=== PATIENT | male | born 1970 | race Caucasian/White ===

== ENCOUNTER 2023-12-03 17:41 | Inpatient (IN) | payer BC ==
[2023-12-03 18:41] VITALS: BMI 17.4
[2023-12-03] MEDS ORDERED: NICOTINE POLACRILEX 2 MG LOZENGE BC PRN (20:22)
[2023-12-03] MEDS ORDERED: MAGNESIUM HYDROX 2400MG/30ML ORAL SUSPENSION 30 ML CUP PO PRN (20:22)
[2023-12-03] MEDS ORDERED: NICOTINE POLACRILEX 2 MG GUM BUC PRN (20:22)
[2023-12-03] MEDS ORDERED: LOPERAMIDE HCL 2 MG CAPSULE PO PRN (20:22)
[2023-12-03] MEDS ORDERED: NALOXONE (NARCAN) HCL 4 MG/0.1 ML SPRAY NS PRN (20:22)
[2023-12-03] MEDS ORDERED: guaiFENesin 600 MG TABLET.ER (FP) PO PRN (20:22)
[2023-12-03] MEDS ORDERED: ONDANSETRON *ODT* 4 MG TABLET SL PRN (20:22)
[2023-12-03] MEDS ORDERED: POLYETHYLENE GLYCOL (HEALTHYLAX) 3350 17 GM PACKET PO PRN (20:22)
[2023-12-03] MEDS ORDERED: NALOXONE (NYS OPIOID OVERDOSE PROGRAM) 4 MG/0.1 ML SPRAY NS PRN (20:22)
[2023-12-03] MEDS ORDERED: MAG HYDROX/AL HYDROX/SIMETH 30 ML UNIT-DOSE CUP PO PRN (20:22)
[2023-12-03] MEDS ORDERED: DICYCLOMINE HCL 10 MG CAPSULE PO PRN (20:22)
[2023-12-03] MEDS ORDERED: IBUPROFEN 400 MG TABLET (FP) PO PRN (20:22)
[2023-12-03] MEDS ORDERED: BENZONATATE 200 MG CAPSULE PO PRN (20:22)
[2023-12-03] MEDS ORDERED: METHOCARBAMOL 500 MG TABLET ONE (21:04)
[2023-12-03] MEDS ORDERED: hydrOXYzine PAMOATE 25 MG CAPSULE (FP) PO ONE (21:05)
[2023-12-03] MEDS ORDERED: ACETAMINOPHEN 325 MG TABLET (FP) ONE (21:05)
[2023-12-03] MEDS: ACETAMINOPHEN 325 MG TABLET (FP) PO PRN (21:08)
[2023-12-03] MEDS: METHOCARBAMOL 500 MG TABLET PO PRN (21:08)
[2023-12-03] MEDS: hydrOXYzine PAMOATE 25 MG CAPSULE (FP) PO PRN (21:09)
[2023-12-03] MEDS: THIAMINE 100 MG TABLET PO SCH (22:30)
[2023-12-03] MEDS: MELATONIN 5 MG TABLETS PO SCH ×2 (22:30→22:57)
[2023-12-04] MEDS: IBUPROFEN 600 MG TABLET (FP) PO PRN (02:33)
[2023-12-04] MEDS ORDERED: BUPRENORPHINE HCL 150 MCG, BUPRENORPHINE HCL 75 MCG BC PRN (08:23)
[2023-12-04] MEDS: cloNIDine HCL 0.1 MG TABLET PO ONE (09:23)
[2023-12-04] MEDS: PRENATAL VITAMINS W/ FOLIC ACID TABLET (FP) PO SCH (09:23)
[2023-12-04] MEDS: BUPRENORPHINE HCL 150 MCG, BUPRENORPHINE HCL 75 MCG BC ONE (09:23)
[2023-12-04 11:23] LABS: MCH 29.6 pg (25.7-33.7); MCHC 33.4 g/dl (32.0-35.9); MEAN CELL VOLUME 88.7 fl (80-96); MEAN PLT VOLUME 7.7 fl (7.5-11.1); PLATELET COUNT 192 10^3/uL (134-434); RBC 3.72 M/mm3 (4.00-5.60); RDW 14.6 % (11.9-15.9); WHITE BLOOD COUNT 2.2 K/mm3 (4.0-10.0)
[2023-12-04 11:30] LABS: POTASSIUM 4.3 mmol/L (3.5-5.1)
[2023-12-04 11:42] LABS: BLOOD UREA NITROGEN 29.6 mg/dL (7-18); CALCIUM 8.3 mg/dL (8.5-10.1)
[2023-12-04 11:46] LABS: CREATININE 1.5 mg/dL (0.55-1.3)
[2023-12-04 11:47] LABS: BILIRUBIN,TOTAL 0.3 mg/dL (0.2-1); TOT PROT 6.6 g/dl (6.4-8.2)
[2023-12-04] MEDS ORDERED: traZODone HCL 50 MG TABLET (FP) PO SCH (22:00)
[2023-12-04] MEDS: diazePAM 5 MG TABLET PO PRN (22:38)
[2023-12-04] MEDS: MIRTAZAPINE 15 MG TABLET (FP) PO SCH (22:38)
[2023-12-04] MEDS: cloNIDine HCL 0.1 MG TABLET PO PRN (22:38)
[2023-12-05] MEDS ORDERED: BUPRENORPHINE HCL 150 MCG, BUPRENORPHINE HCL 75 MCG BC PRN
[2023-12-05] MEDS: BUPRENORPHINE HCL 150 MCG, BUPRENORPHINE HCL 75 MCG BC SCH (05:45)
[2023-12-05] MEDS: BUPRENORPHINE/NALOXONE 0.5 MG/0.125 MG FILM SL SCH (12:07)
[2023-12-05] MEDS: cloNIDine HCL 0.1 MG TABLET PO SCH (13:09)
[2023-12-05] MEDS: methaDONE HCL 10 MG TABLET (FOR DETOX USE ONLY) PO ONE (13:09)
[2023-12-05] MEDS: GABAPENTIN 100 MG CAPSULE PO SCH (13:09)
[2023-12-05] MEDS: BISMUTH SUBSALICYLATE 524 MG/30 ML PO PRN (17:20)
[2023-12-05] MEDS: P-EPHED 60MG/TRIPROLIDI 2.5MG TABLET PO PRN (23:23)
[2023-12-06] MEDS ORDERED: BUPRENORPHINE HCL 450 MCG FILM BC SCH (06:00)
[2023-12-06] MEDS: BUPRENORPHINE/NALOXONE 2 MG/0.5 MG FILM PACKET SL SCH (10:11)
[2023-12-07] MEDS ORDERED: BUPRENORPHINE/NALOXONE 4 MG/1 MG FILM PACKET SL SCH (06:00)
[2023-12-07] MEDS: methaDONE HCL 10 MG TABLET (FOR DETOX USE ONLY) PO ONE (09:32)
[2023-12-07] MEDS: BUPRENORPHINE/NALOXONE 4 MG/1 MG FILM PACKET SL SCH (09:32)
[2023-12-07 11:32] LABS: POTASSIUM 4.3 mmol/L (3.5-5.1)
[2023-12-07 11:35] LABS: ALBUMIN 3.6 g/dl (3.4-5.0); CALCIUM 8.8 mg/dL (8.5-10.1); HEMATOCRIT 31.4 % (35.4-49); HEMOGLOBIN 10.1 GM/dL (11.7-16.9); MCHC 32.2 g/dl (32.0-35.9); MEAN CELL VOLUME 90.1 fl (80-96); MEAN PLT VOLUME 7.9 fl (7.5-11.1); PLATELET COUNT 207 10^3/uL (134-434); RBC 3.48 M/mm3 (4.00-5.60); WHITE BLOOD COUNT 3.6 K/mm3 (4.0-10.0)
[2023-12-07 11:36] LABS: BLOOD UREA NITROGEN 15.6 mg/dL (7-18)
[2023-12-07 11:39] LABS: CREATININE 1.1 mg/dL (0.55-1.3)
[2023-12-07 11:40] LABS: BILIRUBIN,TOTAL 0.3 mg/dL (0.2-1); TOT PROT 7.7 g/dl (6.4-8.2)
[2023-12-07 12:23] LABS: ANISOCYTOSIS 0; MACROCYTOSIS 0
[2023-12-08] MEDS ORDERED: BUPRENORPHINE/NALOXONE 8 MG/2 MG FILM PACKET SL ONE (06:00)
[2023-12-08] MEDS: BUPRENORPHINE/NALOXONE 8 MG/2 MG FILM PACKET SL SCH (09:48)
[2023-12-08] MEDS: BENZOCAINE/MENTHOL (CHLORASEPTIC ) LOZENGE MM PRN (16:28)
[2023-12-08] MEDS: levETIRAcetam 500 MG TABLET (FP) PO ONE (17:38)
[2023-12-08] MEDS: hydrOXYzine PAMOATE 50 MG CAPSULE (FP) PO PRN (22:00)
[2023-12-08] MEDS: SUVOREXANT 15 MG TABLET PO PRN (22:01)
[2023-12-09] MEDS ORDERED: BUPRENORPHINE/NALOXONE 8 MG/2 MG FILM PACKET SL ONE (06:00)
[2023-12-09] MEDS: FERROUS SO4 325 MG TABLET (FP) PO SCH (09:44)
[2023-12-09] MEDS: levETIRAcetam 500 MG TABLET (FP) PO SCH (09:44)
[2023-12-09] MEDS: methaDONE HCL 10 MG TABLET (FOR DETOX USE ONLY) PO ONE (09:44)
[2023-12-09] MEDS: BACITRACIN 0.9 GM PACKET TP ONE (11:49)
[2023-12-09] MEDS: BACITRACIN 0.9 GM PACKET TP SCH (22:08)
[2023-12-10 06:07] VITALS: RESP 16
[2023-12-10] MEDS: BENZOCAINE/MENTH/CETYLPYRD CL 1 EACH LOZENGE MM PRN (10:20)
[2023-12-10 12:46] VITALS: BP 150/84; PULSE 88; TEMP 97.7
== END 2023-12-10 14:36 | disposition other institution (70) | DRG 773 ==
LOC: YASAS 17:41 → Y3N 20:47
PROVIDERS: ADMIT Allergy & Immunology; ATTEND Surgery
PROC: HZ2ZZZZ Detoxification Services for Substance Abuse Treatment (ICD-10-PCS; principal; 2023-12-03)
DX: F11.23 Opioid dependence with withdrawal (principal); F14.20 Cocaine dependence, uncomplicated; F17.210 Nicotine dependence, cigarettes, uncomplicated; F41.9 Anxiety disorder, unspecified; Z21 Asymptomatic human immunodeficiency virus [HIV] infection status; G47.00 Insomnia, unspecified; M54.50 Low back pain, unspecified; G89.29 Other chronic pain; Z99.89 Dependence on other enabling machines and devices
CPT/HCPCS: 36415; 80053; 80305; 85025; 85027; 86780; 87811; 93005; 93010

== ENCOUNTER 2023-12-10 14:46 | Inpatient (IN) | payer BC ==
[2023-12-10] MEDS ORDERED: IBUPROFEN 400 MG TABLET (FP) PO PRN (18:12)
[2023-12-10] MEDS ORDERED: BENZONATATE 200 MG CAPSULE PO PRN (18:12)
[2023-12-10] MEDS ORDERED: MAGNESIUM HYDROX 2400MG/30ML ORAL SUSPENSION 30 ML CUP PO PRN (18:12)
[2023-12-10] MEDS ORDERED: NALOXONE HCL 0.4 MG/ML VIAL IVPUSH PRN (18:12)
[2023-12-10] MEDS ORDERED: LOPERAMIDE HCL 2 MG CAPSULE PO PRN (18:12)
[2023-12-10] MEDS ORDERED: POLYETHYLENE GLYCOL (HEALTHYLAX) 3350 17 GM PACKET PO PRN (18:12)
[2023-12-10] MEDS ORDERED: MAG HYDROX/AL HYDROX/SIMETH 30 ML UNIT-DOSE CUP PO PRN (18:12)
[2023-12-10] MEDS ORDERED: NALOXONE (NARCAN) HCL 4 MG/0.1 ML SPRAY NS PRN (18:12)
[2023-12-10] MEDS ORDERED: guaiFENesin 600 MG TABLET.ER (FP) PO PRN (18:12)
[2023-12-10] MEDS ORDERED: NICOTINE POLACRILEX 2 MG GUM BC PRN (18:16)
[2023-12-10] MEDS: THIAMINE 100 MG TABLET PO SCH (21:59)
[2023-12-10] MEDS: IBUPROFEN 600 MG TABLET (FP) PO PRN (21:59)
[2023-12-10] MEDS: MELATONIN 5 MG TABLETS PO SCH (21:59)
[2023-12-11] MEDS: PRENATAL VITAMINS W/ FOLIC ACID TABLET (FP) PO SCH (09:53)
[2023-12-11] MEDS: hydrOXYzine PAMOATE 25 MG CAPSULE (FP) PO PRN (21:15)
[2023-12-11] MEDS: METHOCARBAMOL 500 MG TABLET PO PRN (21:15)
[2023-12-12] MEDS: BENZOCAINE/MENTHOL (CHLORASEPTIC ) LOZENGE MM PRN (04:27)
[2023-12-14] MEDS ORDERED: BACLOFEN 10 MG TABLET (FP) PO SCH (15:30)
[2023-12-14] MEDS ORDERED: LACTULOSE 20 GM/30 ML UDC (FOR ORAL USE ONLY) PO SCH (15:30)
[2023-12-14] MEDS: SUVOREXANT 10 MG TABLET PO PRN (22:04)
[2023-12-14] MEDS: MIRTAZAPINE 15 MG TABLET (FP) PO SCH (22:05)
[2023-12-16] MEDS: METHOCARBAMOL 500 MG TABLET PO PRN (19:46)
[2023-12-16] MEDS: SUVOREXANT 10 MG TABLET PO PRN (21:13)
[2023-12-16] MEDS ORDERED: METHOCARBAMOL 500 MG TABLET PO SCH (22:00)
[2023-12-17] MEDS ORDERED: NALOXONE (NYS OPIOID OVERDOSE PROGRAM) 4 MG/0.1 ML SPRAY NS PRN (13:46)
[2023-12-17] MEDS: BUPRENORPHINE/NALOXONE 2 MG/0.5 MG FILM PACKET SL SCH (13:49)
[2023-12-18] MEDS: SUVOREXANT 10 MG TABLET PO PRN (21:10)
[2023-12-19] MEDS: BUPRENORPHINE/NALOXONE 2 MG/0.5 MG FILM PACKET SL SCH (13:25)
[2023-12-19] MEDS: SUVOREXANT 15 MG TABLET PO PRN (21:30)
[2023-12-22] MEDS: ACETAMINOPHEN 325 MG TABLET (FP) PO PRN (10:53)
[2023-12-23] MEDS: SUVOREXANT 15 MG TABLET PO PRN (21:13)
[2023-12-24] MEDS: SUVOREXANT 15 MG TABLET PO PRN (21:08)
[2023-12-25 06:49] VITALS: RESP 18
[2023-12-26] MEDS: GABAPENTIN 100 MG CAPSULE PO SCH (15:45)
[2023-12-28 18:10] VITALS: BP 149/88; PULSE 96; TEMP 98.5
[2023-12-28] MEDS ORDERED: SUVOREXANT 15 MG TABLET PO PRN (22:00)
== END 2023-12-29 06:17 | disposition short-term general hospital (02) | DRG 772 ==
LOC: YASAS 14:46 → Y3W 14:47
PROVIDERS: ADMIT Psychiatry & Neurology Pain Medicine; ATTEND Psychiatry & Neurology Pain Medicine
PROC: HZ42ZZZ Group Counseling for Substance Abuse Treatment, Cognitive-Behavioral (ICD-10-PCS; principal; 2023-12-10)
DX: F11.20 Opioid dependence, uncomplicated (principal); F17.210 Nicotine dependence, cigarettes, uncomplicated; Z21 Asymptomatic human immunodeficiency virus [HIV] infection status; G62.9 Polyneuropathy, unspecified; N17.9 Acute kidney failure, unspecified; G47.00 Insomnia, unspecified; R60.0 Localized edema; S09.90XA Unspecified injury of head, initial encounter; S02.5XXA Fracture of tooth (traumatic), initial encounter for closed fracture; W19.XXXA Unspecified fall, initial encounter; Y92.230 Patient room in hospital as the place of occurrence of the external cause; Z86.69 Personal history of other diseases of the nervous system and sense organs

== ENCOUNTER 2023-12-28 18:37 | Inpatient (IN) | payer BC ==
[2023-12-28 19:50] LABS: BASO % 0.4 % (0-2.0); EOS % 1.1 % (0-4.5); HEMOGLOBIN 9.6 GM/dL (11.7-16.9); LYMPH % 13.7 % (8-40); MEAN PLT VOLUME 7.3 fl (7.5-11.1); MONO % 17.2 % (3.8-10.2); NEUT % 67.6 % (42.8-82.8); PLATELET COUNT 235 10^3/uL (134-434); WHITE BLOOD COUNT 4.2 K/mm3 (4.0-10.0)
[2023-12-28] MEDS ORDERED: ACETAMINOPHEN INJECTION 100 ML ONE (19:51)
[2023-12-28 20:07] LABS: POTASSIUM 4.7 mmol/L (3.5-5.1)
[2023-12-28 20:09] LABS: CALCIUM 8.7 mg/dL (8.5-10.1)
[2023-12-28 20:10] LABS: ALBUMIN 3.1 g/dl (3.4-5.0); BLOOD UREA NITROGEN 23.4 mg/dL (7-18)
[2023-12-28 20:13] LABS: CREATININE 0.9 mg/dL (0.55-1.3)
[2023-12-28 20:13] LABS: PH,URINE 7.5 (5.0-8.0); URINE APPEARANCE CLEAR; URINE BILIRUBIN NEGATIVE (NEGATIVE); URINE COLOR YELLOW; URINE GLUCOSE (UA) NEGATIVE (NEGATIVE); URINE KETONE NEGATIVE (NEGATIVE); URINE LEUK ESTERASE NEGATIVE (NEGATIVE); URINE NITRITE NEGATIVE (NEGATIVE); URINE PROTEIN NEGATIVE (NEGATIVE); URINE UROBILINOGEN 0.2 mg/dL (0.2-1.0)
[2023-12-28 20:14] LABS: BILIRUBIN,TOTAL 0.3 mg/dL (0.2-1)
[2023-12-28] MEDS: ACETAMINOPHEN 1000 MG/100 ML BAG IVPB ONE (20:25)
[2023-12-28] MEDS ORDERED: LORazepam 2 MG/ML SDV VIAL ONE (22:08)
[2023-12-28] MEDS: LORazepam 2 MG/ML SDV VIAL IM ONE (22:23)
[2023-12-28] MEDS ORDERED: LIDOCAINE HCL 1%, 10 MG/ML (20ML VIAL) ONE (22:34)
[2023-12-28] MEDS: ACYCLOVIR INJECTION 560 MG in DEXTROSE 5%-WATER - 100 ML IVPB ONE (22:38)
[2023-12-28] MEDS: LIDOCAINE HCL 1%, 10 MG/ML (50 mL VIAL) SQ ONE (22:38)
[2023-12-28] MEDS ORDERED: VANCOMYCIN 1 GM PREMIX (F) 1 GM/200 ML BAG ONE (22:55)
[2023-12-28] MEDS: VANCOMYCIN 1,000 MG in DEXTROSE 5%-WATER - 250 ML IVPB ONE (23:06)
[2023-12-28 23:17] LABS: BF GLUCOSE (CSF ONLY) 46 mg/dL (40-70)
[2023-12-28] MEDS: AMPICILLIN SODIUM 250 MG VIAL IVPB ONE (23:18)
[2023-12-28] MEDS: AMPICILLIN SODIUM 250 MG VIAL IVPUSH ONE (23:18)
[2023-12-28] MEDS: SODIUM CHLORIDE 0.9% 500 ML INFUS.BAG IV ONE (23:23)
[2023-12-28 23:26] LABS: CSF APPEARANCE CLEAR (CLEAR); CSF COLOR COLORLESS (COLORLESS); CSF WBC 3 mm3 (0-5)
[2023-12-29] MEDS: AMPICILLIN SODIUM 250 MG VIAL IVPB ONE (00:37)
[2023-12-29] MEDS: CEFTRIAXONE 2 GM-D5W BAG 2 GM/50 ML BAG IVPB ONE (00:43)
[2023-12-29] MEDS: AMPICILLIN - 2 GM in SODIUM CHLORIDE 100 ML IVPB ONE (01:02)
[2023-12-29] MEDS ORDERED: SUVOREXANT 15 MG TABLET PO PRN (03:12)
[2023-12-29] MEDS ORDERED: MELATONIN 5 MG TABLETS PO PRN (03:12)
[2023-12-29] MEDS: ACETAMINOPHEN 1000 MG/100 ML BAG IVPB ONE (06:13)
[2023-12-29] MEDS: BUPRENORPHINE/NALOXONE 2 MG/0.5 MG FILM PACKET SL SCH ×2 (06:18→21:07)
[2023-12-29] MEDS: AMPICILLIN - 2 GM in SODIUM CHLORIDE 100 ML IVPB SCH (06:18)
[2023-12-29 07:49] LABS: BASO % 0.2 % (0-2.0); EOS % 0.9 % (0-4.5); LYMPH % 11.3 % (8-40); MCH 29.5 pg (25.7-33.7); MCHC 33.5 g/dl (32.0-35.9); MEAN CELL VOLUME 88.1 fl (80-96); MEAN PLT VOLUME 7.9 fl (7.5-11.1); MONO % 12.6 % (3.8-10.2); PLATELET COUNT 227 10^3/uL (134-434); RBC 3.41 M/mm3 (4.00-5.60); RDW 13.8 % (11.9-15.9); WHITE BLOOD COUNT 4.2 K/mm3 (4.0-10.0)
[2023-12-29 08:07] LABS: POTASSIUM 4.5 mmol/L (3.5-5.1)
[2023-12-29 08:12] LABS: CALCIUM 8.6 mg/dL (8.5-10.1)
[2023-12-29 08:13] LABS: ALBUMIN 2.8 g/dl (3.4-5.0); BLOOD UREA NITROGEN 22.1 mg/dL (7-18); MAGNESIUM 1.8 mg/dL (1.8-2.4)
[2023-12-29] MEDS: SODIUM CHLORIDE 1,000 ML IV SCH (08:14)
[2023-12-29] MEDS: VANCOMYCIN/WATER FOR INJ (PEG) 1,000 MG/200 ML BAG IVPB SCH (08:15)
[2023-12-29 08:16] LABS: PHOSPHOROUS 4.3 mg/dL (2.5-4.9)
[2023-12-29 08:17] LABS: BILIRUBIN,TOTAL 0.2 mg/dL (0.2-1); TOT PROT 6.6 g/dl (6.4-8.2)
[2023-12-29] MEDS: ENOXAPARIN NA (PORCINE) 40 MG/0.4 ML DISP.SYRIN SQ SCH (09:35)
[2023-12-29] MEDS: CEFEPIME HCL/D5W 2 GM/50 ML BAG IVPB SCH (10:45)
[2023-12-29] MEDS: ACYCLOVIR INJECTION 680 MG in DEXTROSE 5%-WATER - 100 ML IVPB SCH (10:46)
[2023-12-29] MEDS: ACETAMINOPHEN 1000 MG/100 ML BAG IVPB PRN (11:41)
[2023-12-29 16:03] LABS: HIV INTERPRETATION PRESUMPTIVE POSITIVE (NEGATIVE)
[2023-12-29] MEDS: CEFEPIME HCL 2 GM VIAL (RESTRICTED TO ID) IVPB SCH (17:07)
[2023-12-29] MEDS: VANCOMYCIN 1,000 MG in DEXTROSE 5%-WATER - 250 ML IVPB SCH (17:07)
[2023-12-29] MEDS: CEFTRIAXONE 2 GM-D5W BAG 2 GM/50 ML BAG IVPB SCH (20:04)
[2023-12-30] MEDS: MULTIVITAMINS (DAILY MVI) TABLET (FP) PO SCH (09:22)
[2023-12-30] MEDS: ACETAMINOPHEN 1000 MG/100 ML BAG IVPB PRN (14:02)
[2023-12-30 15:38] VITALS: RESP 18
[2023-12-30] MEDS: MIRTAZAPINE 15 MG TABLET (FP) PO SCH (21:32)
[2023-12-31] MEDS: ACETAMINOPHEN/CAFFEINE/BUTALBITAL 1 TAB PO PRN (17:13)
[2024-01-01 08:09] LABS: POTASSIUM 5.6 mmol/L (3.5-5.1)
[2024-01-01 08:17] LABS: ALBUMIN 3.3 g/dl (3.4-5.0); CALCIUM 9.7 mg/dL (8.5-10.1)
[2024-01-01 08:21] LABS: CREATININE 0.9 mg/dL (0.55-1.3)
[2024-01-01 08:23] LABS: BILIRUBIN,TOTAL 0.2 mg/dL (0.2-1); TOT PROT 7.6 g/dl (6.4-8.2)
[2024-01-01 09:04] LABS: BASO % 0.4 % (0-2.0); EOS % 4.9 % (0-4.5); HEMATOCRIT 35.4 % (35.4-49); HEMOGLOBIN 11.4 GM/dL (11.7-16.9); LYMPH % 25.6 % (8-40); MCH 28.8 pg (25.7-33.7); MCHC 32.1 g/dl (32.0-35.9); MEAN CELL VOLUME 89.8 fl (80-96); MEAN PLT VOLUME 8.3 fl (7.5-11.1); MONO % 13.4 % (3.8-10.2); NEUT % 55.7 % (42.8-82.8); PLATELET COUNT 230 10^3/uL (134-434); RBC 3.94 M/mm3 (4.00-5.60); RDW 14.1 % (11.9-15.9); WHITE BLOOD COUNT 2.2 K/mm3 (4.0-10.0)
[2024-01-01] MEDS: SULFAMETHOXAZOLE/TRIMETHOPRIM 800MG/160MG D.S. TABLET PO SCH (10:00)
[2024-01-01] MEDS: amLODIPine BESYLATE 5 MG TABLET (FP) PO SCH (10:01)
[2024-01-01] MEDS: TOPIRAMATE 25 MG TABLET PO SCH (10:24)
[2024-01-01] MEDS: SODIUM ZIRCONIUM CYCLOSILICATE (LOKELMA) 5 GM PACKET PO SCH (10:27)
[2024-01-01 14:39] VITALS: BMI 20.7
[2024-01-02 07:09] VITALS: BP 132/89; PULSE 74; TEMP 97.5
[2024-01-02 09:30] LABS: BASO % 0.7 % (0-2.0); EOS % 5.2 % (0-4.5); HEMATOCRIT 35.6 % (35.4-49); HEMOGLOBIN 11.7 GM/dL (11.7-16.9); LYMPH % 16.8 % (8-40); MCH 29.1 pg (25.7-33.7); MCHC 32.9 g/dl (32.0-35.9); MEAN CELL VOLUME 88.3 fl (80-96); MEAN PLT VOLUME 8.1 fl (7.5-11.1); MONO % 15.8 % (3.8-10.2); NEUT % 61.5 % (42.8-82.8); PLATELET COUNT 227 10^3/uL (134-434); RBC 4.03 M/mm3 (4.00-5.60); RDW 13.8 % (11.9-15.9); WHITE BLOOD COUNT 2.1 K/mm3 (4.0-10.0)
[2024-01-02 09:42] LABS: POTASSIUM 4.7 mmol/L (3.5-5.1)
[2024-01-02 09:50] LABS: CREATININE 1.1 mg/dL (0.55-1.3)
[2024-01-02 09:51] LABS: ALBUMIN 3.3 g/dl (3.4-5.0); CALCIUM 9.4 mg/dL (8.5-10.1)
[2024-01-02 09:52] LABS: BILIRUBIN,TOTAL 0.2 mg/dL (0.2-1); TOT PROT 7.8 g/dl (6.4-8.2)
[2024-01-04 17:07] LABS: ALPHA-1-GLOBULIN,CSF 4.6 % (2.2-6.2); ALPHA-2-GLOBULIN,CSF 9.4 % (3.1-8.7); GAMMA GLOBULIN,CSF 21.3 % (2.8-8.5); M-SPIKE CSF Not Observed % (Not Observed); PRE-ALBUMIN CSF 3.7 % (1.2-5.5)
== END 2024-01-02 11:37 | disposition other institution (70) | DRG 54 ==
LOC: JER 18:37 → JERBED 23:20 → INTOOBSV 23:20 → UNDOADMOB 23:20 → JERBED 12-29 01:12 → J8W 12-29 01:12 → JERBED 12-30 13:54 → OBSVTOIN 12-31 10:38
PROVIDERS: ADMIT Student in an Organized Health Care Education/Training Program; ATTEND Nurse Practitioner Acute Care
PROC: 009U3ZZ Drainage of Spinal Canal, Percutaneous Approach (ICD-10-PCS; principal; 2023-12-28)
DX: R51.9 Headache, unspecified (principal); E43 Unspecified severe protein-calorie malnutrition; F11.20 Opioid dependence, uncomplicated; F14.20 Cocaine dependence, uncomplicated; B20 Human immunodeficiency virus [HIV] disease; Z68.20 Body mass index [BMI] 20.0-20.9, adult; G47.00 Insomnia, unspecified
CPT/HCPCS: 0241U-QW; 36415; 70450-TC; 70486-TC; 71045-TC-FY; 72100-TC-FY; 80053; 81003; 82945; 83605; 83735; 84100; 84157; 84166; 85025; 86359; 86360; 86592; 86617; 86777; 86803; 87040; 87070; 87102; 87116; 87205; 87206; 87210; 87252; 87389; 87529; 87899; 93005; 93010; 93306-TC; 97116-GP; 97162-GP; 99285-25; G0378; J0131

== ENCOUNTER 2024-01-02 12:12 | Inpatient (IN) | payer BC ==
[2024-01-02] MEDS ORDERED: MAG HYDROX/AL HYDROX/SIMETH 30 ML UNIT-DOSE CUP PO PRN (13:05)
[2024-01-02] MEDS ORDERED: IBUPROFEN 400 MG TABLET (FP) PO PRN (13:05)
[2024-01-02] MEDS ORDERED: LOPERAMIDE HCL 2 MG CAPSULE PO PRN (13:05)
[2024-01-02] MEDS ORDERED: MAGNESIUM HYDROX 2400MG/30ML ORAL SUSPENSION 30 ML CUP PO PRN (13:05)
[2024-01-02] MEDS ORDERED: BENZONATATE 200 MG CAPSULE PO PRN (13:05)
[2024-01-02] MEDS ORDERED: NICOTINE POLACRILEX 2 MG LOZENGE BC PRN (13:05)
[2024-01-02] MEDS ORDERED: METHOCARBAMOL 500 MG TABLET PO PRN (13:05)
[2024-01-02] MEDS ORDERED: POLYETHYLENE GLYCOL (HEALTHYLAX) 3350 17 GM PACKET PO PRN (13:05)
[2024-01-02] MEDS ORDERED: NICOTINE POLACRILEX 2 MG GUM BUC PRN (13:05)
[2024-01-02] MEDS ORDERED: BUPRENORPHINE/NALOXONE 2 MG/0.5 MG FILM PACKET ONE (13:57)
[2024-01-02] MEDS ORDERED: IBUPROFEN 600 MG TABLET (FP) PO ONE (14:04)
[2024-01-02] MEDS: IBUPROFEN 600 MG TABLET (FP) PO PRN (14:06)
[2024-01-02] MEDS: TOPIRAMATE 25 MG TABLET PO SCH (14:06)
[2024-01-02] MEDS: BUPRENORPHINE/NALOXONE 2 MG/0.5 MG FILM PACKET SL SCH (14:06)
[2024-01-02] MEDS: THIAMINE 100 MG TABLET PO SCH (21:04)
[2024-01-02] MEDS: MELATONIN 5 MG TABLETS PO SCH (21:04)
[2024-01-03] MEDS: PRENATAL VITAMINS W/ FOLIC ACID TABLET (FP) PO SCH (09:57)
[2024-01-03] MEDS: amLODIPine BESYLATE 5 MG TABLET (FP) PO SCH (09:57)
[2024-01-03] MEDS: ACETAMINOPHEN 325 MG TABLET (FP) PO PRN (21:52)
[2024-01-04] MEDS: guaiFENesin 600 MG TABLET.ER (FP) PO PRN (10:40)
[2024-01-05] MEDS: BENZOCAINE/MENTHOL (CHLORASEPTIC ) LOZENGE MM PRN (00:36)
[2024-01-07] MEDS ORDERED: OXYMETAZOLINE 0.05% NASAL SOLUTION 15 ML BOTTLE NS PRN (15:05)
[2024-01-07] MEDS ORDERED: ALBUTEROL SO4 HFA INHALER IH PRN (15:07)
[2024-01-07] MEDS ORDERED: ALBUTEROL SO4 2.5/IPRATROPIUM 0.5 INH SOL 3 ML VIAL.NEB. NEB PRN (15:07)
[2024-01-07] MEDS: guaiFENesin 200 MG/10 ML 10 ML UNIT-DOSE CUPS PO PRN (19:16)
[2024-01-07] MEDS: BUDESONIDE/FORMETEROL FUMARATE 80/4.5 mcg INHALER IH SCH (21:22)
[2024-01-08] MEDS: TOPIRAMATE 25 MG TABLET PO SCH (21:10)
[2024-01-08] MEDS: SULFAMETHOXAZOLE/TRIMETHOPRIM 800MG/160MG D.S. TABLET PO SCH (21:10)
[2024-01-09] MEDS: hydrOXYzine PAMOATE 25 MG CAPSULE (FP) PO PRN (01:00)
[2024-01-09] MEDS: BENZONATATE 200 MG CAPSULE PO PRN (01:01)
[2024-01-09] MEDS ORDERED: SULFAMETHOXAZOLE/TRIMETHOPRIM 800MG/160MG D.S. TABLET PO SCH (10:00)
[2024-01-09 10:13] LABS: POTASSIUM 4.4 mmol/L (3.5-5.1)
[2024-01-09 10:16] LABS: ALBUMIN 3.4 g/dl (3.4-5.0); BASO % 0.3 % (0-2.0); BLOOD UREA NITROGEN 32.9 mg/dL (7-18); EOS % 2.6 % (0-4.5); HEMOGLOBIN 10.2 GM/dL (11.7-16.9); LYMPH % 12.2 % (8-40); MCH 29.3 pg (25.7-33.7); MCHC 32.7 g/dl (32.0-35.9); MEAN CELL VOLUME 89.4 fl (80-96); MONO % 11.5 % (3.8-10.2); NEUT % 73.4 % (42.8-82.8); PLATELET COUNT 239 10^3/uL (134-434); RBC 3.47 M/mm3 (4.00-5.60); RDW 14.5 % (11.9-15.9); WHITE BLOOD COUNT 3.4 K/mm3 (4.0-10.0)
[2024-01-09 10:17] LABS: CALCIUM 8.9 mg/dL (8.5-10.1)
[2024-01-09 10:19] LABS: CREATININE 1.2 mg/dL (0.55-1.3)
[2024-01-09 10:21] LABS: BILIRUBIN,TOTAL 0.1 mg/dL (0.2-1); TOT PROT 7.6 g/dl (6.4-8.2)
[2024-01-11] MEDS: TOPIRAMATE 25 MG TABLET PO SCH (10:55)
[2024-01-11] MEDS: QUEtiapine FUMARATE 50 MG TABLET PO PRN (21:49)
[2024-01-11] MEDS ORDERED: MIRTAZAPINE 15 MG TABLET (FP) PO SCH (22:00)
[2024-01-12] MEDS: FERROUS SO4 325 MG TABLET (FP) PO SCH (09:48)
[2024-01-16 06:22] VITALS: TEMP 97.5
[2024-01-16 09:12] VITALS: BP 110/66; PULSE 86; RESP 18
[2024-01-16] MEDS: NALOXONE (NYS OPIOID OVERDOSE PROGRAM) 4 MG/0.1 ML SPRAY NS SCH (09:16)
[2024-01-19] MEDS ORDERED: SULFAMETHOXAZOLE/TRIMETHOPRIM 800MG/160MG D.S. TABLET PO SCH (10:00)
== END 2024-01-16 10:18 | disposition home or self-care (01) | DRG 772 ==
LOC: YASAS 12:12 → Y3NR 14:35 → Y3W 14:54 → Y5N 01-12 04:08 → Y3W 01-12 04:10
PROVIDERS: ADMIT Psychiatry & Neurology Pain Medicine; ATTEND Psychiatry & Neurology Pain Medicine
PROC: HZ42ZZZ Group Counseling for Substance Abuse Treatment, Cognitive-Behavioral (ICD-10-PCS; principal; 2024-01-02)
DX: F11.20 Opioid dependence, uncomplicated (principal); F14.20 Cocaine dependence, uncomplicated; F17.210 Nicotine dependence, cigarettes, uncomplicated; F19.982 Other psychoactive substance use, unspecified with psychoactive substance-induced sleep disorder; B20 Human immunodeficiency virus [HIV] disease; E43 Unspecified severe protein-calorie malnutrition; Z68.20 Body mass index [BMI] 20.0-20.9, adult; M54.59 Other low back pain; G89.29 Other chronic pain; G47.00 Insomnia, unspecified; S02.5XXD Fracture of tooth (traumatic), subsequent encounter for fracture with routine healing; X58.XXXD Exposure to other specified factors, subsequent encounter; L84 Corns and callosities; B35.3 Tinea pedis; G97.1 Other reaction to spinal and lumbar puncture
CPT/HCPCS: 0241U-QW; 36415; 80053; 80305; 85025; 86359; 86360; 87651; 87811